=== PATIENT | female | born 1980 ===

== ENCOUNTER 2021-09-08 10:07 | Day surgery (SDC) | payer BC, OTHER ==
[~2021-09-08 10:07] MED LIST: Lactated Ringers 1,000 ML IV SCH
[2021-09-08] MEDS ORDERED: fentaNYL 100 MCG/2 ML SDV ONE (11:26)
[2021-09-08] MEDS ORDERED: Propofol 200 MG/20 ML SDV ONE (11:26)
[2021-09-08] MEDS ORDERED: Lidocaine 2% 5 ML SDV ONE (12:43)
[2021-09-08] MEDS ORDERED: Lactated Ringers 1,000 ML IV SCH (13:45)
== END 2021-09-08 14:10 | disposition home or self-care (01) ==
LOC: MW.SDS 10:07
PROVIDERS: ATTEND Surgery
DX: K62.5 Hemorrhage of anus and rectum (principal); F41.9 Anxiety disorder, unspecified; Z98.890 Other specified postprocedural states
CPT/HCPCS: 45378; J2704; J3010; J7120; 00811